=== PATIENT | female | born 2000 ===

== ENCOUNTER 2023-07-18 14:26 | Emergency (ER) | payer SELFPAY ==
[2023-07-18 14:28] VITALS: BP 125/83; PULSE 83; RESP 18; TEMP 36.3; O2SAT 99
--- NOTE | 2023-07-18 15:15 | ED_ITS ---
HPI - General Adult General Chief complaint: GI Bleed Stated complaint: sent from for blood in stool History of Present Illness HPI narrative: Doris Humphries is a 22 y/o female PMHx of asthma/ depression who presents with reports of having diarrhea last night and noticed a small amount of bright red blood. Today she had diarrhea two more times and noticed a lot more bright red blood and darker blood. She reports of some lower abdominal pain / not reproduced with palpation. Denies changes with urination, currently on menses. Denies fever/chills Related Data Allergies Allergy/AdvReac Type Severity Reaction Status Date / Time Sulfa (Sulfonamide Allergy Stopped Verified 07/18/23 14:27 Antibiotics) Breathing Course Vital Signs Vital signs: Vital Signs Temperature 36.3 C L 07/18/23 14:28 Pulse Rate 83 07/18/23 14:28 Respiratory Rate 18 07/18/23 14:28 Blood Pressure 125/83 07/18/23 14:28 Pulse Oximetry 99 07/18/23 14:28 Oxygen Delivery Room Air 07/18/23 14:28 Temperature 36.3 C L 07/18/23 14:28 Pulse Rate 83 07/18/23 14:28 Respiratory Rate 18 07/18/23 14:28 Blood Pressure 125/83 07/18/23 14:28 Pulse Oximetry 99 07/18/23 14:28 Oxygen Delivery Room Air 07/18/23 14:28 Medical Decision Making Vital Signs Vital Signs: Vital Signs Temperature 36.3 C L 07/18/23 14:28 Pulse Rate 83 07/18/23 14:28 Respiratory Rate 18 07/18/23 14:28 Blood Pressure 125/83 07/18/23 14:28 Pulse Oximetry 99 07/18/23 14:28 Oxygen Delivery Room Air 07/18/23 14:28 Temperature 36.3 C L 07/18/23 14:28 Pulse Rate 83 07/18/23 14:28 Respiratory Rate 18 07/18/23 14:28 Blood Pressure 125/83 07/18/23 14:28 Pulse Oximetry 99 07/18/23 14:28 Oxygen Delivery Room Air 07/18/23 14:28 Lab Data Labs: Lab Results 07/18/23 Range/Units 16:04 Urine Color Yellow (Yellow) Urine Appearance Clear (Clear) Urine pH 5.0 (5.0-9.0) Ur Specific [place] 1.015 (1.001-1.035) Urine Protein Negative (Negative) mg/dL Urine Glucose (UA) Negative (Negative) mg/dL Urine Ketones Negative (Negative) mg/dL Ur Blood (Man) Non-hemolyzed trace (Negative) Urine Nitrate Negative (Negative) Urine Bilirubin Negative (Negative) Urine Urobilinogen 0.2 (<2.0) mg/dL Leukocyte Esterase Rfl Negative (Negative) JULIO CESAR/UL Urine RBC 0-2 (0-2) /hpf Urine WBC 0-5 /hpf Ur Squamous Epith Cells Occasional (Few) /hpf Urine Bacteria None seen /hpf Urine Casts 0-2 Discharge Plan Discharge Clinical Impression: Diarrhea Patient Disposition: Left Against Medical Advice Condition: Stable Follow-up/Referrals: PHYSICIAN,TRANSCRIBING MACHINE OPERATOR [Primary Care Provider] -
[2023-07-18 16:17] LABS: Appearance Urine Clear (Clear); Bacteria Urine None Seen /hpf; Bilirubin Urine Negative (Negative); Color Urine Yellow (Yellow); Glucose Urine UA Negative (Negative); Ketones Urine Negative (Negative); Leukocyte Esterase Ur Negative LEU/UL (Negative); Nitrate Urine Negative (Negative); Non Pathogenic Casts 0-2; Protein Urine Negative (Negative); RBC Urine 0-2 /hpf (0-2); Specific Grav Ur 1.015 (1.001-1.035); Squamous Epithelial Cell Urine Occasional /hpf (Few); Urobilinogen Urine 0.2 mg/dL (<2.0); WBC Urine 0-5 /hpf
[2023-07-18 16:31] LABS: Add Urine Microscopic? YES
--- NOTE | 2023-07-18 16:55 | PC.NURSE ---
Patient refused blood work. Provider aware
--- NOTE | 2023-07-18 17:39 | PC.NURSE ---
Attempted to call [facility] for room and no answer. Will reattempt
== END 2023-07-18 19:10 | disposition left against medical advice (07) ==
PROVIDERS: Emergency Provider Nurse Practitioner Family
DX: R19.7 Diarrhea, unspecified (principal)
CPT/HCPCS: 81001; 81025; 99281; 99283